=== PATIENT | male | born 1980 ===

== ENCOUNTER 2025-02-03 06:00 | Day surgery (SDC) | payer OTHER ==
[2025-01-28 13:00] LABS: BASO % 0.3 % (0.1-1.2); EOS # 0.02 (0.04-0.54); EOS % 0.1 % (0.7-7.0); LYMPH # 1.68 (1.18-3.74); LYMPH % 11.8 % (19.3-53.1); MEAN PLATELET VOLUME 9.10 fl (9.4-12.4); MONO # 0.70 (0.24-0.82); MONO % 4.9 % (4.7-12.5); NEUT # 11.71 (1.56-6.13); NEUT % 82.5 % (34.0-71.1); RED CELL DISTRIBUTION WIDTH 13.5 % (11.6-14.4)
[2025-01-28 13:34] LABS: INR 1.03
[2025-01-28 13:42] VITALS: BP 120/84
[2025-01-28 13:44] LABS: ALT/SGPT 36.0 U/L (12-78); AST/SGOT 22.0 U/L (15-37); BILIRUBIN TOTAL 0.36 mg/dL (0.3-1.2); BUN CREA RATIO 10.0 (7.0-25.0); CREATININE SERUM 0.78 mg/dL (0.70-1.30); GFR 108.13; GLOBULINA 3.5 G/DL (2.4-3.5); GLUCOSE FASTING 97.0 mg/dL (65-100); OSMOLALITY SERUM 278.0 MOSM/KG (275-295)
[2025-01-28 14:39] LABS: URINE APPEARANCE Clear; URINE BILIRRUBIN Negative (NEGATIVE); URINE BLOOD Negative; URINE COLOR Yellow; URINE GLUCOSE Negative (NEGATIVE); URINE KETONE 15 (NEGATIVE); URINE LEUKOCYTE Negative; URINE NITRATE Negative; URINE PROTEIN Negative (NEGATIVE); URINE UROBILINOGEN 0.2 E.U./dl
[2025-01-28 14:40] LABS: URINE RBC 2.0 uL (0.0-20.8)
[2025-01-28 14:52] LABS: URINE BACTERIA 1.1 uL (0.0-1933); URINE CAST 0.00 uL (0.0-1.40); URINE EPITHELIAL CELLS 0.1 uL (0.0-38.8); URINE WBC 0.6 uL (0.0-23.2)
[~2025-02-03] VITALS: Ht 162.6 cm; Wt 72.6 kg
[2025-02-03] MEDS ORDERED: CEFAZOLIN SODIUM 1,000 MG VIAL ONE (07:30)
== END 2025-02-03 15:45 | disposition home or self-care (01) ==
LOC: CIR.AMB 06:00
PROVIDERS: ATTEND Surgery
DX: K40.30 Unilateral inguinal hernia, with obstruction, without gangrene, not specified as recurrent (principal)